=== PATIENT | male | born 2005 | race Caucasian/White ===

== ENCOUNTER 2025-01-17 11:24 | Emergency (ER) | payer MEDICAID ==
[~2025-01-17] VITALS: Ht 167.6 cm; Wt 50.6 kg
[2025-01-17 11:41] VITALS: BP 114/60; PULSE 84; RESP 18; O2SAT 99
--- NOTE | 2025-01-17 14:31 | Physician Documentation ---
History of Present Illness Chief Complaint: Vomiting Stated Complaint: VOMITING Time Seen by MD: 13:46 Primary Medical Doctor: JESUS HPI Year old male presents to the ED with a complaint of nausea vomiting x1 day. He states he cooked chicken for the 1st time last night and thinks it may have been undercooked as it was muscular than he has experienced previously. Reports mild abdominal pain denies any fevers. Denies any diarrhea. Patient has not guarding but reports some nausea and pending vomiting Day of Onset: Jan 17, 2025 Medication Reconciliation Allergies: Coded Allergies: No Known Allergies (Unverified , 01/17/25) Scheduled Azithromycin (Azithromycin), 1 TAB PO UD Scheduled PRN ONDANSETRON ODT 4mg tablet (Ondansetron Odt), 1 TAB PO Q6H PRN PRN for nause a/vomiting Review of Systems All Other Systems at this time: Reviewed and Negative ROS As stated above in the HPI, otherwise all systems are reviewed and negative. Physical Exam Vital Signs: Temperature: 98.5, Source: Temporal, Heart Rate: 84, Respiratory Rate: 18, BP: 114/60, Pulse Oximetry: 99, Weight: 50.600 Oxygen Flow Rate: 0 Physical Exam General: Alert, no apparent distress. HEENT: PERRL, EOMI, no injection, moist mucous membranes. Neck: Full range of motion. Respiratory: Lungs clear, no respiratory distress. Chest: No accessory muscle use. Cardiovascular: Regular rate and rhythm, no murmurs. Gastrointestinal: Soft, nontender, nondistended. Bowels sounds present. Extremities: Normal range of motion, no deformity. Neurologic: Oriented x4. Psychiatric: Normal mood and affect. Skin: Normal color, warm and dry. No edema, no ecchymosis. Progress Results/Orders Results/Orders Orders - UBALDO VANG NP Urinalysis, Cult If Indicated (01/17/25 14:23) Cbc/Diff (01/17/25 14:23) BMP (01/17/25 14:23) Lipase (01/17/25 14:23) CMP (01/17/25 14:23) Vital Signs 01/17/25 11:41 Temp 98.5 Pulse 84 Resp 18 B/P (MAP) 114/60 Pulse Ox 99 O2 Flow Rate 0 Medical Decision Making Findings I suspect this patient is suffering from salmonella secondary to eating raw chicken. Going to start him on oral antibiotics and have him follow up with his primary care Differential Dx:Considerations: Include: AAA, Angina/AR, Aortic dissection, Appendicitis, Bowel obstruction, Cholangitis, Cholelithasis, Constipation, Diverticular disease, Esophageal rupture, Esophagitis, Gastritis/PUD, Gastro enteritis, GI hemorrhage, Hernia, Hepatitis, Inflammatory BD, Ischemic bowel, Pancreatitis, Porphyria, Testicular torsion, Trauma, intraabdominal, Urinary obstruction, Urinary tract infection, Urolithiasis, Other Departure Disposition: 01 HOME / SELF CARE / HOMELESS Impression: Primary Impression: Vomiting Additional Impression: Salmonella Discharge Instructions: Nausea and Vomiting, Adult, Salmonella Gastroenteritis, Adult Referrals: NO PRIMARY CARE PROVIDER (PCP) Prescriptions ONDANSETRON ODT 4mg tablet (ONDANSETRON ODT) 4 Mg Tab.rapdis 1 TAB PO Q6H PRN PRN for nausea/vomiting for 4 Days, #16 TAB 0 Refills Prov: UBALDO VANG NP 01/17/25 Azithromycin (Azithromycin) 250 Mg Tablet 1 TAB PO UD for 5 Days, #6 TAB 2 the first day followed by 1 for days 2-5 Prov: UBALDO VANG NP 01/17/25 Education Educated: Patient Educated regarding: diagnosis Signature Scribe Signature: c Attestation: Scribed for Ubaldo Vang Counterintelligence Agent by Ubaldo Mcclendon NP . 01/17/25 22:54 UBALDO VANG NP Jan 17, 2025 14:31
[2025-01-17 14:37] LABS: MEAN PLATELET VOLUME 8.4 FL (7.4-10.4); RED CELL DISTRIBUTION WIDTH 13.3 % (11.5-14.5)
[2025-01-17 14:55] LABS: CREATININE 0.91 MG/DL (0.60-1.10); TOTAL CARBON DIOXIDE 31.3 MMOL/L (24-32); eCRCL 93 ML/MIN; eGFR > 90 ML/MIN
[2025-01-17] MEDS ORDERED: ONDA-243 PO (15:03)
[2025-01-17] MEDS ORDERED: AZIT250T13 PO (15:03)
[2025-01-17 15:08] VITALS: TEMP 98.5
== END 2025-01-17 15:15 | disposition home or self-care (01) ==
LOC: ER 11:25
DX: A02.9 Salmonella infection, unspecified (principal); R11.10 Vomiting, unspecified
CPT/HCPCS: 36415; 80053; 83690; 85025; 99283